=== PATIENT | female | born 2000 | race African-American/Black ===

== ENCOUNTER 2021-01-23 11:41 | Observation (INO) | payer MEDICAID ==
[~2021-01-23] VITALS: Ht 154.9 cm; Wt 58.1 kg
[2021-01-23 12:54] LABS: CLARITY URINE CLEAR (CLEAR); COLOR URINE YELLOW (YELLOW); KETONES URINE NEGATIVE (NEGATIVE); LEUKOCYTE ESTERASE URINE 3+ (NEGATIVE); NITRITE URINE NEGATIVE (NEGATIVE); OCCULT BLOOD URINE NEGATIVE (NEGATIVE); PROTEIN URINE NEGATIVE (NEGATIVE); SPECIFIC GRAVITY URINE 1.019 (1.005-1.030)
[2021-01-23] MEDS ORDERED: FLUCONAZOLE 150MG TABLET PO SCH (13:15)
== END 2021-01-23 15:40 | disposition home or self-care (01) ==
LOC: 8 EST A/PP 11:41
PROVIDERS: ADMIT Obstetrics & Gynecology; ATTEND Obstetrics & Gynecology
DX: O34.62 Maternal care for abnormality of vagina, second trimester (principal); Z3A.22 22 weeks gestation of pregnancy
CPT/HCPCS: 59025; 76805; 76817; 81003; G0378; 99281

== ENCOUNTER 2021-02-24 00:32 | Observation (INO) | payer MEDICAID ==
[2021-02-24] MEDS ORDERED: ACET-2708 PO (01:36)
== END 2021-02-24 00:47 | disposition still patient (30) ==
LOC: 8 EST LDRP 00:32
PROVIDERS: ADMIT Specialist; ATTEND Specialist
DX: Z04.3 Encounter for examination and observation following other accident (principal); Z3A.26 26 weeks gestation of pregnancy
CPT/HCPCS: 59025; G0378; 99281

== ENCOUNTER 2021-02-24 01:05 | Emergency (ER) | payer MEDICAID ==
[~2021-02-24] VITALS: Ht 157.5 cm; Wt 61.0 kg
[2021-02-24 01:24] VITALS: BP 105/65
[2021-02-24] MEDS ORDERED: ACET-2708 PO (01:36)
== END 2021-02-24 02:00 | disposition home or self-care (01) ==
LOC: ER 01:05
DX: Z04.1 Encounter for examination and observation following transport accident (principal); Z33.1 Pregnant state, incidental
CPT/HCPCS: 99282

== ENCOUNTER 2021-05-25 00:37 | Observation (INO) | payer MEDICAID ==
[~2021-05-25] VITALS: Ht 154.9 cm; Wt 68.5 kg
[~2021-05-25 00:37] MED LIST: ACET-2708 PO
[2021-05-25] MEDS ORDERED: PRENATAL (03:12)
== END 2021-05-25 04:20 | disposition home or self-care (01) ==
LOC: 8 EST LDRP 00:37
PROVIDERS: ADMIT Obstetrics & Gynecology; ATTEND Obstetrics & Gynecology
DX: O62.9 Abnormality of forces of labor, unspecified (principal); O26.893 Other specified pregnancy related conditions, third trimester; R10.9 Unspecified abdominal pain; Z3A.39 39 weeks gestation of pregnancy
CPT/HCPCS: 59025; 76805; 76817; 76818; G0378